=== PATIENT | male | born 1955 | race Caucasian/White ===

== ENCOUNTER 2017-05-19 16:13 | Emergency (ER) | payer OTHER ==
[~2017-05-19] VITALS: Ht 193 cm; Wt 129.5 kg
[2017-05-19 19:23] VITALS: BP 110/81
== END 2017-05-19 19:23 | disposition home or self-care (01) ==
LOC: EME 16:13
PROC: 0RSMXZZ Reposition Left Elbow Joint, External Approach (ICD-10-PCS; principal; 2017-05-19)
DX: S42.402A Unspecified fracture of lower end of left humerus, initial encounter for closed fracture (principal); S53.005A Unspecified dislocation of left radial head, initial encounter; W00.0XXA Fall on same level due to ice and snow, initial encounter; I10 Essential (primary) hypertension; F17.200 Nicotine dependence, unspecified, uncomplicated
CPT/HCPCS: 73080; 99281; 99284; J3010